=== PATIENT | male | born 1970 ===

== ENCOUNTER 2020-01-11 10:14 | Day surgery (SDC) | payer OTHER ==
[2020-01-09 16:33] VITALS: BMI 23.7
[2020-01-11 11:04] VITALS: TEMP 98.1
--- OUTSIDE RECORDS SUMMARY | 2020-01-11 11:23 | XMS ---
:1970 [facility] Providers Name Role Phone MD Carmine Golden Unavailable Unavailable MD Alem Romo Unavailable Unavailable Patsy Santamaria Unavailable Unavailable Re-disclosure Warning The records that you are about to access may contain information from federally- assisted alcohol or drug abuse programs. If such information is present, then the following federally mandated warning applies: This information has been disclosed to you from records protected by federal confidentiality rules (42 CFR part 2). The federal rules prohibit you from making any further disclosure of this information unless further disclosure is expressly permitted by the written consent of the person to whom it pertains or as otherwise permitted by 42 CFR part 2. A general authorization for the release of medical or other information is NOT sufficient for this purpose. The Federal rules restrict any use of the information to criminally investigate or prosecute any alcohol or drug abuse patient.The records that you are about to access may contain highly sensitive health information, the redisclosure of which is protected by Article 27-F of the [facility] Public Health law. If you continue you may haveaccess to information: Regarding HIV / AIDS; Provided by facilities licensed or operated by the [facility] Office of Mental Health; or Provided by the [facility] Office for People With Developmental Disabilities. If such information is present, then the following [facility] mandated warning applies: This information has been disclosed to you from confidential records which are protected by state law. State law prohibits you from making any further disclosure of this information without the specific written consent of the person to whom it pertains, or as otherwise permitted by law. Any unauthorized further disclosure in violation of state law may result in a fine or long term sentence or both. A general authorization for the release of medical or other information is NOT sufficient authorization for further disclosure. Encounters Encounter Providers Location Date Indications Data Source(s ) Inpatient Attender: MD MORAES 12/31/2018 INTRACTABLE PAIN [facility] Carmine 12:44:00 AM [facility] al SinghAttender: EDGenesis Garner HuAdmitter: 01/03/2019 MD Lou 08:13:00 PM SinghReferrer: MD REGINE Romo INTRACTABLE PAIN Patient discharged. Insurance Providers Payer name Policy type Policy ID Covered Covered libertarian's Policy P jere / Coverage libertarian ID relationship to Marte Inf ormation type marte AFFINITY [id number] SP [id number] MEDICAID [id number] SP [id number] MEDICARE [id number] SP [id number] MEDICARE [id number] SP [id number] U41 AFFINITY [id number] SP [id number] Medicaid E Medicaid [id number] 1 [id number] W [employer] Medicaid [id number] 1 [id number] Health Plan Medicaid Medicaid [id number] 1 [id number] Problems, Conditions, and Diagnoses Code Display Name Description Problem Type Effective Data Dates Source(s) R41.82 Altered mental Altered mental Diagnosis 01/03/2019 [facility] status, unspecified status, unspecified 12:00:0 0 AM [facility] I50.20 Unspecified Systolic congestive Diagnosis 12/31/2018 [facility] systolic heart failure 07:33:00 AM [facility] (congestive) heart [facility] al failure E11.9 Type 2 diabetes Diabetes mellitus Diagnosis 12/31/2018 [facility] mellitus without 07:33:00 AM [facility] complications [facility] E11.42 Type 2 diabetes Type 2 diabetes Diagnosis 12/31/2018 [facility] mellitus with mellitus with 07:33:00 AM [facility] diabetic diabetic [facility] polyneuropathy polyneuropathy A41.9 Sepsis, unspecified Sepsis Diagnosis 12/31/2018 [facility] organism 07:33:00 AM [facility] R52 Pain, unspecified Intractable pain Diagnosis 12/31/2018 [facility] [place] 07:33:00 AM [facility] K45.8 Other specified Other specified Diagnosis 12/31/2018 [facility] abdominal hernia abdominal hernia 07:33:00 AM V [facility]on without obstruction without obstruction EDT Hospital or gangrene or gangrene F11.23 Opioid dependence Opioid dependence Diagnosis 12/31/2018 [facility] with withdrawal with withdrawal 07:33:00 AM [facility] L97.519 Non-pressure Non-pressure Diagnosis 12/31/2018 [facility] Moun t chronic ulcer of chronic ulcer of 07:33:00 AM V gretchenon other part of right other part of right EDT Hospital foot with foot unspecified severity 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) [facility] current Diagnosis 9 [facility] use of oral use of oral 07:33:00 AM [facility] hypoglycemic drugs hypoglycemic drug [facility] INTRACTABLE PAIN INTRACTABLE PAIN Diagnosis 12/31/2018 [facility] 07:33:00 AM [facility] I50.9 Heart failure, Congestive heart Diagnosis 12/31/2018 [facility] unspecified failure 07:33:00 AM [facility] R41.0 Disorientation, Delirium, acute Diagnosis 12/31/2018 [facility] unspecified 07:33:00 AM [facility] N17.9 Acute kidney Acute renal failure Diagnosis 12/31/2018 [facility] failure, 07:33:00 AM [facility] Z89.431 Acquired absence of Acquired absence of Diagnosis 019 [facility] right foot right foot 07:33:00 AM [facility] Z90.49 Acquired absence of S/P appendectomy Diagnosis 12/31/2018 [facility] other specified 07:33:00 AM [facility] parts of digestive [facility] Hospit al tract BACK PAIN BACK PAIN Diagnosis 12/31/2018 [facility] 12:44:00 AM [facility] M54.5 Low back pain Low back pain Diagnosis 12/31/2018 [facility] unt 12:00:00 AM [facility] Results ID Date Data Source [id number] 01/06/2020 12:34:00 PM EDT [facility] Name Value Range Interpretation Description Data Sup porting Code Source(s) Document(s ) SARS [facility] coronavirus 2 RNA This lab was ordered by [facility] and reported by [facility]. ID Date Data Source [id number] 12/23/2019 09:16:00 AM EDT [facility] Name Value Range Interpretation Description Data Sup porting Code Source(s) Document(s ) SARS [facility] Coronavirus 2 RNA Presence Respiratory Specimen HECTOR Probe Detection This lab was ordered by [facility] and rep orted by [facility]. ID Date Data Source [id number] 11/02/2019 10:30:00 AM [facility] Name Value Range Interpretation Description Data Sup porting Code Source(s) Document(s ) SARS [facility] coronavirus 2 RNA This lab was ordered by [facility] doreen/Matthew and reported by [facility]. ID Date Data Source [id number] 01/03/2019 04:11:00 PM EDT [facility] EXAM: XR Right Foot Complete EXAM DATE/T MIGUELANGEL: 01/03/2019 4:27 PM CLINICAL HISTORY: 48 years old, male; Visit reason: Diabetic right foot ulcer, rule out om; TECHNIQUE: Imaging protocol: XR Right foot. Views: 3 or more views. COMPARISON: No relevant prior exams. 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 No fractures or dislocations. No p eriostitis or cortical erosion. Soft tissues: Unremarkable. IMPRESSION: No evidence of osteomyelitis. If clinical concern remains, further evaluation with MRI is recommend ed. Name Value Range Interpretation Code Description Data Felicia rce(s) Supporting Document(s ) ID Date Data Source [id number] 01/02/2019 12:55:00 PM EDT [facility] Study: Renal and bladder ultrasound.Hist ory: PainComparison: No similar prior examination is available for comparison. Technique: Real-time ultrasound of the kidneys and urinary bladder are performe d.Findings:The proximal aorta measures 2.09 cm AP.The proximal IVC appears grossly u nremarkable.The right kidney measures 9.93 x 5.51 x 5.93 cm, appears grossly unremark able.The left renal margins are completely obscured, the parenchyma is not adequate ly visualized. It measures approximately 13.42 x 5.5 x 5.8 cm.No gross evidence o f right or left renal hydronephrosis is noted within limitations of the study. No shad owing calculus or cyst is seen.The prevoid urinary bladder measures 10.89 x 6.88x 8 .63 cm with volume of 338.6cc. No mural thickening is noted.Ureteral jets are pa rtially seen.Impression:The right kidney and urinary bladder appear unremarkable.The left kidney is obscured and poorly visualized.No post void bladder images a re obtained. Name Value Range Interpretation Code Description Data [facility] Document(s ) ID Date Data Source [id number] 01/02/2019 11:21:00 AM EDT [facility] EXAM: CT Head Without Contrast EXAM DATE /TIME: 01/02/2019 11:57 AM CLINICAL HISTORY: 48 years old, male; Visit reason: Change in mental status; TECHNIQUE: Imaging protocol: Computed tomography of the hea d without contrast. Radiation optimization: All CT scans at this facility use at sujatha st one of these dose optimization techniques: automated exposure control; mA and/or kV adjustment per patient size (includes targeted exams where dose is matched to clinical indication); or iterative reconstruction. COMPARISON: No relevant prior studies available. FINDINGS: Motion limited examBrain: Focal area of low den sity in the right parietal cortex; series 2, image 32. Focal area of cortical low den sity frontal lobes; axial series 2, images 19 through 22 for example. No hemorrhage. Ventricles: Normal. No ventriculomegaly. Bones/joints: Unremarkable. No acute fra cture. Sinuses: Visualized sinuses are unremarkable. No fluid levels. Mastoid a ir cells: Visualized mastoid air cells are well aerated. Soft tissues: Unremarkable . IMPRESSION: Motion limited examQuestion right parietal and bifrontal cortical is chemia. Recommend repeat examination once patient is stabilized. Consider MR imagraheel ng. Name Value Range Interpretation Code Description Data [facility] Supporting Document(s ) ID Date Data Source [id number] 01/02/2019 11:21:00 AM EDT [facility] EXAM: CT Lumbar Spine Without Contrast E XAM DATE/TIME: 01/02/2019 11:57 AM CLINICAL HISTORY: 48 years old, male; Visit reaso n: Rule out perispinal abscess; TECHNIQUE: Imaging protocol: Computed tomography im ages of the lumbar spine without contrast. Radiation optimization: All CT scans at this facility use at least one of these dose optimization techniques: automated expos ure control; mA and/or kV adjustment per patient size (includes targeted exams wh ere dose is matched to clinical indication); or iterative reconstruction. COMPARISON: No relevant prior studies available. FINDINGS: Exam limited in the absence of intravenous contrast. Sagittal and coronal reconstructions appear to be noisy and l ow resolution.Vertebrae: No acute fracture. Normal alignment. Discs/Spinal canal/Burton ral foramina: Endplate sclerosis and erosions with moderate disc narrowing at L4-5. Di stal osteophyte complex noted left side greater than right with superimposed melvi tral protrusion. Ligamentum flavum buckling. Moderate flattening of the thecal sac. M ild encroachment of the neural foramina.Soft tissues: No paraspinal soft tissue infla mmatory process is seen. Perinephric strandy density noted in the imaged portions of the renal spaces.. Evidence edema within the subcutaneous fat of the posterior back r egionIMPRESSION: Degenerative disc disease at L4-5 with disc bulge osteophyte complex with central protrusion resulting in moderate spinal stenosis and mild bilateral neura l foraminal encroachment.No paraspinal inflammatory collection is seen. Suggest repeat exam with IV contrast.Dependent subcutaneous fat edema along the posteri or aspect of the back. Name Value Range Interpretation Code Description Data Felicia rce(s) Supporting Document(s ) Procedure
[2020-01-11 13:16] VITALS: BP 110/79; PULSE 86
--- NOTE | 2020-01-16 13:10 | PATH ---
Surgical Pathology Report Patient Name: KIMBERLEE SANDERSON [facility]. Rec. #: [id number] /Age/Gender: 1970 (Age: 49) / M Account: [id number] Location: [facility] Taken: 01/11/2020 Received: 01/11/2020 Reported: 01/16/2020 Physicians: Virginia Soto M.D. Specimen(s) Received A: SECOND PORTION DUODENUM B: ANTRUM C: GE JUNCTION Clinical History Abdominal pain Postoperative diagnosis: Gastritis Final Diagnosis A. SECOND PORTION OF DUODENUM, BIOPSY: DUODENAL MUCOSA WITH NO PATHOLOGIC FINDINGS. B. ANTRUM, BIOPSY: MILD CHRONIC GASTRITIS. IMMUNOSTAIN IS NEGATIVE FOR H. PYLORI ORGANISMS. C. GE JUNCTION, BIOPSY: COLUMNAR (GASTRIC-TYPE) MUCOSA SHOWING MODERATE CHRONIC ACTIVE INFLAMMATION AND FOCAL INTESTINAL METAPLASIA. NEGATIVE FOR DYSPLASIA. NO ESOPHAGEAL (SQUAMOUS) MUCOSA IDENTIFIED. Electronically Signed Nandini Louise M.D. Gross Description A. Received in formalin, labeled "second portion duodenum" is a robins, irregular portion of soft tissue measuring 0.3 cm. in greatest dimension. The specimen is submitted in toto in one cassette. B. Received in formalin, labeled "antrum" is a robins, irregular portion of soft tissue measuring 0.7 cm. in greatest dimension. The specimen is submitted in toto in one cassette. C. Received in formalin, labeled "GE junction" is a robins, irregular portion of soft tissue measuring 0.3 cm. in greatest dimension. The specimen is submitted in toto in one cassette. 01/12/2020 saudi01/12/2020
== END 2020-01-11 13:15 | disposition home or self-care (01) ==
LOC: FASU-ENDO 10:14
PROVIDERS: ATTEND Internal Medicine Gastroenterology
PROC: 0DB68ZX Excision of Stomach, Via Natural or Artificial Opening Endoscopic, Diagnostic (ICD-10-PCS; 2020-01-11)
PROC: 0DB48ZX Excision of Esophagogastric Junction, Via Natural or Artificial Opening Endoscopic, Diagnostic (ICD-10-PCS; 2020-01-11)
PROC: 0DB98ZX Excision of Duodenum, Via Natural or Artificial Opening Endoscopic, Diagnostic (ICD-10-PCS; principal; 2020-01-11 12:21)
DX: K29.50 Unspecified chronic gastritis without bleeding (principal); K20.9 Esophagitis, unspecified; R13.10 Dysphagia, unspecified
CPT/HCPCS: 88305-TC; 88342-TC